=== PATIENT | male | born 1990 | race Caucasian/White ===

== ENCOUNTER 2019-01-24 22:07 | Emergency (ER) | payer SELFPAY ==
[~2019-01-24] VITALS: Ht 172.7 cm; Wt 69.2 kg
[2019-01-24 22:30] VITALS: BP 149/95; PULSE 66; RESP 16; Ht 172.7 cm; Wt 69.2 kg
== END 2019-01-25 02:40 | disposition left against medical advice (07) ==
LOC: E/R 22:07
DX: Z53.21 Procedure and treatment not carried out due to patient leaving prior to being seen by health care provider (principal)